=== PATIENT | male | born 1985 | race Caucasian/White ===

== ENCOUNTER 2017-11-17 15:13 | Emergency (ER) | payer OTHER ==
[2017-11-17 15:24] VITALS: BP 159/99
[2017-11-17] MEDS ORDERED: Ondansetron 4 MG/2 ML SDV IVPUSH ONE (15:33)
[2017-11-17] MEDS ORDERED: Sodium Chloride 0.9% 10 ML Syringe FLUSH PRN (15:33)
[2017-11-17] MEDS ORDERED: HYDROmorphone 1 MG/ML Syringe IVPUSH ONE (15:34)
[2017-11-17] MEDS ORDERED: Ketorolac 30 MG/ML SDV IVPUSH ONE (15:34)
[2017-11-17] MEDS ORDERED: Sodium Chloride 0.9% 1,000 ML IV SCH (15:45)
--- NOTE | 2017-11-17 17:16 | EDM.PDOC ---
ED HPI GENERAL MEDICAL PROBLEM - General Chief Complaint: Abdominal Pain Stated Complaint: ABDOMINAL PAIN Time Seen by Provider: 11/17/17 15:24 Source of Information: Reports: Patient History Limitations: Reports: No Limitations - History of Present Illness INITIAL COMMENTS - FREE TEXT/NARRATIVE: The patient presents with left sided flank pain. This started on Tuesday. He has nausea and vomiting. He has no dysuria or hematuria. He has a history of kidney stones and he feels this about the same pain. He had to get lithotripsy before. He has no fever, chills, cough, chest pain or shortness of breath. He went to the [facility] and they sent him here for an assessment. Onset: Gradual Duration: Day(s): (5) Location: Reports: Back (Left flank) Quality: Reports: Sharp Severity: Severe Improves with: Reports: None Worsens with: Reports: None Associated Symptoms: Reports: Nausea/Vomiting. Denies: Chest Pain, Cough, Fever /Chills, Shortness of Breath Left Flank Pain Score (Numeric/FACES): 8 - Related Data Allergies Allergy/AdvReac Type Severity Reaction Status Date / Time No Known Allergies Allergy Verified 04/26/16 10:04 Home Meds: Home Meds Acetaminophen/Butalbital/Caff [Fioricet 325-50-40 MG] 1 tab PO Q6H PRN 04/26/16 [History] DULoxetine HCl [Cymbalta] 60 mg PO DAILY 04/26/16 [History] Fluticasone Propionate [Allergy Relief] 15.8 ml NS DAILY 04/26/16 [History] Meloxicam 15 mg PO DAILY 04/26/16 [History] Multivit-Min/Iron Fum/Folic AC [Pblrx-Jdhdhgy-Hlyvxecj Tablet] 1 tab PO DAILY [History] Omeprazole 20 mg PO DAILY 04/26/16 [History] Ondansetron [Zofran] 8 mg PO Q6H PRN #6 tablet 04/26/16 [Rx] SUMAtriptan [Imitrex] 50 mg PO ASDIRECTED PRN 04/26/16 [History] Topiramate 25 mg PO BID 04/26/16 [History] Trimamcinolone Acetonide. TOP BEDTIME 04/26/16 [History] Verapamil HCl [Verapamil ER] 120 mg PO DAILY 04/26/16 [History] Tamsulosin HCl [Flomax] 0.4 mg PO DAILY #7 cap.er.24h 11/17/17 [Rx] oxyCODONE HCl/Acetaminophen [Percocet 5-325 mg Tablet] 1 - 2 each PO Q6HR PRN # 20 tablet 11/17/17 [Rx] Past Medical History HEENT History: Reports: Impaired Vision Genitourinary History: Reports: Renal Calculus Musculoskeletal History: Reports: Back Pain, Chronic, Neck Pain, Chronic Neurological History: Reports: Migraines Psychiatric History: Reports: Depression Social & Family History - Family History Family Medical History: Noncontributory - Tobacco Use Smoking Status *Q: Never Smoker Second Hand Smoke Exposure: No - Caffeine Use Caffeine Use: Reports: Coffee, Energy Drinks, Soda, Tea - Recreational Drug Use Recreational Drug Use: No ED ROS GENERAL - Review of Systems Review Of Systems: See Below Constitutional: Reports: No Symptoms HEENT: Reports: No Symptoms Respiratory: Reports: No Symptoms Cardiovascular: Reports: No Symptoms Endocrine: Reports: No Symptoms GI/Abdominal: Reports: Nausea, Vomiting. Denies: Abdominal Pain : Reports: Flank Pain (Left). Denies: Dysuria, Hematuria ED EXAM, RENAL/ - Physical Exam Exam: See Below Exam Limited By: No Limitations General Appearance: Alert, No Apparent Distress Ears: Normal External Exam Nose: Normal Inspection Head: Atraumatic, Normocephalic Neck: Normal Inspection Respiratory/Chest: No Respiratory Distress, Lungs Clear, Normal Breath Sounds Cardiovascular: Regular Rate, Rhythm, No Edema, No Murmur GI/Abdominal: Soft, Non-Tender, No Organomegaly, No Mass Back Exam: CVA Tenderness (L) (Mild) Course - Vital Signs Last Recorded V/S: Last Vital Signs Temp 98.6 F 11/17/17 15:20 Pulse 76 11/17/17 15:20 Resp 18 11/17/17 15:20 BP 159/99 H 11/17/17 15:20 Pulse Ox 100 11/17/17 15:20 - Orders/Labs/Meds Orders: Active Orders 24 hr Category Date Time Status Peripheral IV Care [RC] . DIRECTED Care 11/17/17 15:33 Active Abdomen Pelvis wo Cont [CT] Stat Exams 11/17/17 15:33 Taken UA W/MICROSCOPIC [URIN] Stat Lab 11/17/17 15:33 Uncollected Sodium Chloride 0.9% [Normal Saline] 1,000 ml Med 11/17/17 15:45 Active IV ASDIRECTED Sodium Chloride 0.9% [Saline Flush] Med 11/17/17 15:33 Active 10 ml FLUSH ASDIRECTED PRN ED Antiemetic Medication Reflex [OM.PC] Stat Oth 11/17/17 15:33 Ordered Peripheral IV Insertion Adult [OM.PC] Stat Ot 11/17/17 15:33 Ordered Medication Orders Sodium Chloride (Normal Saline) 1,000 mls @ 125 mls/hr IV ASDIRECTED WILMAR Last Admin: 11/17/17 16:41 Dose: 125 mls/hr Sodium Chloride (Saline Flush) 10 ml FLUSH ASDIRECTED PRN PRN Reason: Keep Vein Open Last Admin: 11/17/17 16:48 Dose: 10 ml Labs: Laboratory Tests 11/17/17 11/17/17 Range/Units 16:00 16:00 WBC 8.68 (4.23-9.07) K/mm3 RBC 4.24 L (4.63-6.08) M/mm3 Hgb 12.9 L (13.7-17.5) gm/L Hct 38.7 L (40.1-51.0) % MCV 91.3 (79.0-92.2) fl MCH 30.4 (25.7-32.2) pg MCHC 33.3 (32.2-35.5) g/dl RDW Std Deviation 40.9 (35.1-43.9) fL Plt Count 223 (163-337) K/mm3 MPV 10.1 (9.4-12.3) fl Neut % (Auto) 73.9 H (34.0-67.9) % Lymph % (Auto) 13.7 L (21.8-53.1) % [place] % (Auto) 9.2 (5.3-12.2) % Eos % (Auto) 2.9 (0.8-7.0) Baso % (Auto) 0.2 (0.1-1.2) % Neut # (Auto) 6.41 H (1.78-5.38) K/mm3 Lymph # (Auto) 1.19 L (1.32-3.57) K/mm3 [place] # (Auto) 0.80 (0.30-0.82) K/mm3 Eos # (Auto) 0.25 (0.04-0.54) K/mm3 Baso # (Auto) 0.02 (0.01-0.08) K/mm3 Sodium 139 (136-145) mEq/L Potassium 3.8 (3.5-5.1) mEq/L Chloride 103 (98-107) mEq/L Carbon Dioxide 25 (21-32) mEq/L Anion Gap 14.8 (5-15) BUN 14 (7-18) mg/dL Creatinine 1.6 H (0.7-1.3) mg/dL Est Cr Clr Drug Dosing 72.08 mL/min Estimated GFR (MDRD) 50 (>60) mL/min BUN/Creatinine Ratio 8.8 L (14-18) Glucose 94 (74-106) mg/dL Calcium 8.9 (8.5-10.1) mg/dL Total Bilirubin 0.4 (0.2-1.0) mg/dL AST 13 L (15-37) U/L ALT 28 (16-63) U/L Alkaline Phosphatase 97 (46-116) U/L Total Protein 7.6 (6.4-8.2) g/dl Albumin 3.4 (3.4-5.0) g/dl Globulin 4.2 gm/dL Albumin/Globulin Ratio 0.8 L (1-2) Lipase 110 (73-393) U/L Meds: Medications Generic Name Dose Route Start Last Admin Trade Name Freq PRN Reason Stop Dose Admin Sodium Chloride 1,000 mls @ 125 mls/hr 11/17/17 15:45 11/17/17 16:41 Normal Saline IV 125 mls/hr ASDIRECTED WILMAR Administration Sodium Chloride 10 ml 11/17/17 15:33 11/17/17 16:48 Saline Flush FLUSH 10 ml ASDIRECTED PRN Administration Keep Vein Open Discontinued Medications Generic Name Dose Route Start Last Admin Trade Name Freq PRN Reason Stop Dose Admin Hydromorphone HCl 1 mg 11/17/17 15:34 11/17/17 16:41 Dilaudid IVPUSH 11/17/17 15:35 1 mg ONETIME ONE Administration Ketorolac Tromethamine 30 mg 11/17/17 15:34 11/17/17 16:47 Toradol IVPUSH 11/17/17 15:35 30 mg ONETIME ONE Administration Ondansetron HCl 4 mg 11/17/17 15:33 11/17/17 16:45 Zofran IVPUSH 11/17/17 15:34 4 mg ONETIME ONE Administration - Re-Assessments/Exams Free Text/Narrative Re-Assessment/Exam: 11/17/17 17:15 I ordered an IV NS at 125mL/hr, zofran 4mg IV, toradol 30mg IV, dilaudid 1mg IV , labs, UA and a CT of his abdomen and pelvis. His CBC looks good. His creatinine is elevated at 1.6 but that what it was when he was in here last. His lipase was negative. His CT shows a 6 x 10mm left ureteropelvic junction calculus, left hydronephrosis. I called [facility] in [place] and talked with Dr Perez the urologist rn oncology clinical and he wanted to see the patient tomorrow. The patient is going down tomorrow for another appointment. Departure - Departure Time of Disposition: 17:20 Disposition: Home, Self-Care 01 Condition: Good Clinical Impression: Ureteral calculus, left, Kidney stone on left side, Ureteral colic - Discharge Information Prescriptions: oxyCODONE HCl/Acetaminophen [Percocet 5-325 mg Tablet] 1 - 2 each PO Q6HR PRN # 20 tablet PRN Reason: Pain Tamsulosin HCl [Flomax] 0.4 mg PO DAILY #7 cap.er.24h Referrals: Sherrie Jama DO [Primary Care Provider] - Additional Instructions: Follow up with Dr Perez tomorrow at [facility] in [place] at 10am [place] time. Take the percocet as needed for pain. Take the flomax daily. Please return if you are worse. - My Orders Last 24 Hours: My Active Orders 11/17/17 15:33 Peripheral IV Care [RC] . DIRECTED Abdomen Pelvis wo Cont [CT] Stat UA W/MICROSCOPIC [URIN] Stat Sodium Chloride 0.9% [Saline Flush] 10 ml FLUSH ASDIRECTED PRN ED Antiemetic Medication Reflex [OM.PC] Stat Peripheral IV Insertion Adult [OM.PC] Stat 11/17/17 15:45 Sodium Chloride 0.9% [Normal Saline] 1,000 ml IV ASDIRECTED - Assessment/Plan Last 24 Hours: My Active Orders 11/17/17 15:33 Peripheral IV Care [RC] . DIRECTED Abdomen Pelvis wo Cont [CT] Stat UA W/MICROSCOPIC [URIN] Stat Sodium Chloride 0.9% [Saline Flush] 10 ml FLUSH ASDIRECTED PRN ED Antiemetic Medication Reflex [OM.PC] Stat Peripheral IV Insertion Adult [OM.PC] Stat 11/17/17 15:45 Sodium Chloride 0.9% [Normal Saline] 1,000 ml IV ASDIRECTED
--- NOTE | 2017-11-18 11:02 | CT ---
CT abdomen and pelvis Technique: Multiple axial sections were obtained from inferiorly from above the dome of the diaphragm inferiorly through the pubic symphysis. Intravenous and oral contrast was not utilized. Study has been performed as a ureteral stone protocol. Findings: Left-sided hydronephrosis is seen due to an obstructing stone at the UPJ measuring approximately 9.5 mm in greatest dimension. No other abnormal calcifications are seen along the course of the ureters. Single small nonobstructing calculus seen within the left kidney. No abnormal calcifications seen within the right kidney. Visualized lung bases show nothing acute. Noncontrast appearance of the liver and spleen are within normal limits. Adrenal glands show no nodule. Pancreas is within normal limits. Gallbladder contains no calcified gallstones. Adrenal glands show no nodule. Small hiatal hernia is seen. Aorta shows no aneurysmal dilatation. No retroperitoneal adenopathy or mesenteric abnormalities are seen. No pelvic mass or adenopathy is seen. Appendix is seen which is normal. Bone window settings were reviewed which appear within normal limits for the patient's age. Impression: 1. Left-sided hydronephrosis caused by 9.5 mm stone within the left UPJ. Small nonobstructing calculus seen within the left kidney. 2. No additional abnormality is seen on noncontrast CT study of the abdomen and pelvis performed as a ureteral stone protocol. Diagnostic code #3 I agree with preliminary report issued by [facility] ([facility] report finalized on 11/17/17, 5:07 PM Central Time)
== END 2017-11-17 17:50 | disposition home or self-care (01) ==
LOC: JD.ED 15:13
DX: N13.2 Hydronephrosis with renal and ureteral calculous obstruction (principal); F32.9 Major depressive disorder, single episode, unspecified; Z79.899 Other long term (current) drug therapy
CPT/HCPCS: 36415; 74176; 74176-26; 80053; 83690; 85025; 96361; 96374; 96375; 99284-25; J1170; J1885; J2405; J7040; J7050

== ENCOUNTER 2019-03-16 16:31 | Emergency (ER) | payer OTHER ==
[2019-03-16 16:44] VITALS: BP 154/96
[2019-03-16] MEDS ORDERED: Ketorolac 30 MG/ML SDV IVPUSH ONE (16:59)
[2019-03-16] MEDS ORDERED: Sodium Chloride 0.9% 1,000 ML IV ONE (16:59)
[2019-03-16] MEDS ORDERED: Sodium Chloride 0.9% 10 ML Syringe FLUSH PRN (16:59)
--- NOTE | 2019-03-16 17:10 | EDM.PDOC ---
ED HPI GENERAL MEDICAL PROBLEM - General Chief Complaint: Flank Pain Stated Complaint: BACK PAIN POSSIBLE KIDNEY STONE Time Seen by Provider: 03/16/19 16:48 Source of Information: Reports: Patient, Old Records History Limitations: Reports: No Limitations - History of Present Illness INITIAL COMMENTS - FREE TEXT/NARRATIVE: 33-year-old male presents for evaluation and treatment of left flank pain. Patient states the pain started about 2-3 days ago. He reports that he had gross hematuria. He has a history of kidney stones and says that this feels similar. He has also noticed some diarrhea and some blood in stool. No fevers, chills, nausea, vomiting or abdominal pain. Patient was seen at the [facility] clinic, had a UA done. Had a large amount of blood present. Sent to us for further management and care. UA was negative for nitrites and leukocytes. Review the patient's records show that he was seen in November, in the ER. At that time his fund of a large stone, 9.5 mm, to the left ureter. Several smaller nonobstructing stones are seen in the left kidney. Patient did have to go to [facility] to have the stone removed. 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: [place] Left Flank Pain Score (Numeric/FACES): 6 - Related Data Allergies Allergy/AdvReac Type Severity Reaction Status Date / Time No Known Allergies Allergy Verified 04/26/16 10:04 Home Meds: Home Meds Acetaminophen 325 mg PO Q6H PRN 03/16/19 [History] Benazepril HCl [Lotensin] 20 mg PO DAILY 03/16/19 [History] Escitalopram Oxalate 10 mg PO DAILY 03/16/19 [History] Loratadine 10 mg PO DAILY 03/16/19 [History] Mirtazapine 45 mg PO BEDTIME 03/16/19 [History] Naproxen 500 mg PO BID 03/16/19 [History] Propranolol HCl 20 mg PO BID 03/16/19 [History] Terazosin HCl [Terazosin] 10 mg PO BEDTIME 03/16/19 [History] traZODone HCl [Trazodone HCl] 50 mg PO BEDTIME 03/16/19 [History] Past Medical History HEENT History: Reports: Impaired Vision Genitourinary History: Reports: Renal Calculus Musculoskeletal History: Reports: Back Pain, Chronic, Neck Pain, Chronic Neurological History: Reports: Migraines Psychiatric History: Reports: Depression Social & Family History - Family History Family Medical History: Noncontributory - Caffeine Use Caffeine Use: Reports: Coffee, Energy Drinks, Soda, Tea ED ROS GENERAL - Review of Systems Review Of Systems: See Below Constitutional: Denies: Fever, Chills GI/Abdominal: Reports: Diarrhea, Hematochezia. Denies: Abdominal Pain, Melena, Nausea, Vomiting : Reports: Flank Pain (left), Hematuria ED EXAM, RENAL/ - Physical Exam Exam: See Below Exam Limited By: No Limitations General Appearance: Alert, WD/WN, No Apparent Distress Throat/Mouth: Normal Inspection, Normal Voice, No Airway Compromise Respiratory/Chest: No Respiratory Distress, Lungs Clear, Normal Breath Sounds Cardiovascular: Normal Peripheral Pulses, Regular Rate, Rhythm, No Murmur GI/Abdominal: Normal Bowel Sounds, Soft, Non-Tender Back Exam: Normal Inspection, CVA Tenderness (L) Extremities: Normal Inspection Neurological: Alert, Oriented, Normal Cognition Psychiatric: Flat Affect Skin Exam: Warm, Dry, Normal Color Course - Vital Signs Last Recorded V/S: Last Vital Signs Temp 98 F 03/16/19 16:41 Pulse 87 03/16/19 16:41 Resp 18 03/16/19 16:41 BP 154/96 H 03/16/19 16:41 Pulse Ox 98 03/16/19 16:41 - Orders/Labs/Meds Labs: Laboratory Tests 03/16/19 03/16/19 Range/Units 17:35 17:35 WBC 5.96 (4.23-9.07) K/mm3 RBC 4.29 L (4.63-6.08) M/mm3 Hgb 12.9 L (13.7-17.5) gm/L Hct 38.8 L (40.1-51.0) % MCV 90.4 (79.0-92.2) fl MCH 30.1 (25.7-32.2) pg MCHC 33.2 (32.2-35.5) g/dl RDW Std Deviation 44.0 H (35.1-43.9) fL Plt Count 307 D (163-337) K/mm3 MPV 9.8 (9.4-12.3) fl Neut % (Auto) 50.5 (34.0-67.9) % Lymph % (Auto) 35.4 (21.8-53.1) % [place] % (Auto) 8.1 (5.3-12.2) % Eos % (Auto) 5.5 (0.8-7.0) Baso % (Auto) 0.3 (0.1-1.2) % Neut # (Auto) 3.01 (1.78-5.38) K/mm3 Lymph # (Auto) 2.11 (1.32-3.57) K/mm3 [place] # (Auto) 0.48 (0.30-0.82) K/mm3 Eos # (Auto) 0.33 (0.04-0.54) K/mm3 Baso # (Auto) 0.02 (0.01-0.08) K/mm3 Sodium 141 (136-145) mEq/L Potassium 3.5 (3.5-5.1) mEq/L Chloride 104 (98-107) mEq/L Carbon Dioxide 24 (21-32) mEq/L Anion Gap 16.5 H (5-15) BUN 13 (7-18) mg/dL Creatinine 1.2 (0.7-1.3) mg/dL Est Cr Clr Drug Dosing 95.20 mL/min Estimated GFR (MDRD) > 60 (>60) mL/min BUN/Creatinine Ratio 10.8 L (14-18) Glucose 110 H (74-106) mg/dL Calcium 9.0 (8.5-10.1) mg/dL Total Bilirubin 0.2 (0.2-1.0) mg/dL AST 10 L (15-37) U/L ALT 17 (16-63) U/L Alkaline Phosphatase 96 (46-116) U/L C-Reactive Protein 2.6 H* (<1.0) mg/dL Total Protein 7.1 (6.4-8.2) g/dl Albumin 3.6 (3.4-5.0) g/dl Globulin 3.5 gm/dL Albumin/Globulin Ratio 1.0 (1-2) Meds: Medications Discontinued Medications Generic Name Dose Route Start Last Admin Trade Name Freq PRN Reason Stop Dose Admin Sodium Chloride 1,000 mls @ 999 mls/hr 03/16/19 16:59 Normal Saline IV 03/16/19 17:59 ONETIME ONE Ketorolac Tromethamine 30 mg 03/16/19 16:59 03/16/19 17:40 Toradol IVPUSH 03/16/19 17:00 Not Given ONETIME ONE Ketorolac Tromethamine 60 mg 03/16/19 17:37 03/16/19 17:40 Toradol IM 03/16/19 17:38 60 mg ONETIME ONE Administration Sodium Chloride 10 ml 03/16/19 16:59 Saline Flush FLUSH ASDIRECTED PRN Keep Vein Open - Radiology Interpretation Free Text/Narrative:: CT abdomen and pelvis Technique: Multiple axial sections were obtained from above the dome of the diaphragm inferiorly through the pubic symphysis. Intravenous contrast and oral contrast not utilized. Study has been performed as a ureteral stone protocol. Comparison: Prior renal stone protocol dated 11/17/17. Findings: Nonobstructing stone is noted within the left kidney measuring 8 mm. No other abnormal calcifications are seen within the kidneys. No ureteral dilatation is seen. No ureteral calcifications are identified. Small portion of the visualized lung bases appear clear. Noncontrast appearance of the liver and spleen appear within normal limits. Adrenal glands show no nodule. Pancreas appears within normal limits. Aorta shows no aneurysm. No retroperitoneal adenopathy or mesenteric abnormalities are seen. Very small fat-containing umbilical hernia is incidentally noted. Appendix is seen which is normal in size. No pelvic mass or adenopathy is seen. No free fluid or inflammatory change is seen. No bowel dilatation is seen. No definite areas of bowel wall thickening are seen. Bone window settings were reviewed which appear within normal limits for the patient's age. Impression: 1. Nonobstructing calculus within the left kidney measuring 8 mm. No ureteral dilatation or ureteral stone is seen. 2. Other portions of the noncontrast CT study of the abdomen and pelvis appear within normal limits. Nothing acute is appreciated. - Re-Assessments/Exams Free Text/Narrative Re-Assessment/Exam: 03/16/19 19:01 Reviewed the labs and imaging with te patient. We were unable to establish an IV, therefor IM tordol ordered instead. Patient reported he had plans to go to work after leaving the ER. [facility] in his [facility] and the flank pain. Recommend follow-up with urology on a non emergent basis for the stone in the left kidney. Will discharge home at this time. Discharge instructions as documented. Departure - Departure Time of Disposition: 19:02 Disposition: Home, Self-Care 01 Condition: Fair Clinical Impression: Flank pain - Discharge Information *PRESCRIPTION DRUG MONITORING PROGRAM REVIEWED*: No *COPY OF PRESCRIPTION DRUG MONITORING REPORT IN PATIENT DYAN: No Instructions: Flank Pain, Adult, [id number] Referrals: Raya Espinosa MD [Primary Care Provider] - Forms: ED Department Discharge Additional Instructions: Recommend you drink plenty of fluids. Or the counter Tylenol or Motrin as needed for pain relief. [facility] of your [facility]. Recommend follow up with urology as you do have an 8 millimeter stone that is nonobstructing in the left kidney. This stone is not causing obstruction or ureteral dilation at this time. Please return to the ER if your symptoms change or worsen.
[2019-03-16] MEDS ORDERED: Ketorolac 60 MG/2 ML SDV IM ONE (17:37)
--- NOTE | 2019-03-16 18:26 | CT ---
CT abdomen and pelvis Technique: Multiple axial sections were obtained from above the dome of the diaphragm inferiorly through the pubic symphysis. Intravenous contrast and oral contrast not utilized. Study has been performed as a ureteral stone protocol. Comparison: Prior renal stone protocol dated 11/17/17. Findings: Nonobstructing stone is noted within the left kidney measuring 8 mm. No other abnormal calcifications are seen within the kidneys. No ureteral dilatation is seen. No ureteral calcifications are identified. Small portion of the visualized lung bases appear clear. Noncontrast appearance of the liver and spleen appear within normal limits. Adrenal glands show no nodule. Pancreas appears within normal limits. Aorta shows no aneurysm. No retroperitoneal adenopathy or mesenteric abnormalities are seen. Very small fat-containing umbilical hernia is incidentally noted. Appendix is seen which is normal in size. No pelvic mass or adenopathy is seen. No free fluid or inflammatory change is seen. No bowel dilatation is seen. No definite areas of bowel wall thickening are seen. Bone window settings were reviewed which appear within normal limits for the patient's age. Impression: 1. Nonobstructing calculus within the left kidney measuring 8 mm. No ureteral dilatation or ureteral stone is seen. 2. Other portions of the noncontrast CT study of the abdomen and pelvis appear within normal limits. Nothing acute is appreciated. Diagnostic code #2
== END 2019-03-16 19:10 | disposition home or self-care (01) ==
LOC: JD.ED 16:31
DX: R10.9 Unspecified abdominal pain (principal); F32.9 Major depressive disorder, single episode, unspecified; Z79.899 Other long term (current) drug therapy
CPT/HCPCS: 36415; 74176; 80053; 85025; 86140; 96372; 99284; J1885

== ENCOUNTER 2022-06-04 08:04 | Observation (INO) | payer OTHER ==
[2022-06-04] MEDS ORDERED: Metoclopramide 10 MG/2 ML SDV IVPUSH ONE (08:30)
[2022-06-04] MEDS ORDERED: Dextrose 5%-Lactated Ringers 1,000 ML IV SCH (08:30)
[2022-06-04] MEDS ORDERED: Ketorolac 30 MG/ML SDV IVPUSH SCH (08:30)
[2022-06-04] MEDS ORDERED: diphenhydrAMINE 50 MG/ML SDV IVPUSH ONE (08:58)
[2022-06-04] MEDS ORDERED: Pantoprazole 40 MG Vial IVPUSH ONE (09:36)
[2022-06-04] MEDS: Sodium Chloride 0.9% 1,000 ML IV SCH ×2 (09:55→16:01)
[2022-06-04] MEDS ORDERED: Magnesium Sulfate/Water 2 GM in Premix Bag 1 BAG IV ONE (12:00)
[2022-06-04] MEDS: Dextrose 5%-Lactated Ringers 1,000 ML IV SCH (17:13)
[2022-06-04] MEDS: Acetaminophen 325 MG Tab PO PRN (18:12)
[2022-06-04] MEDS: Mirtazapine 15 MG Tab PO SCH (21:07)
[2022-06-04] MEDS: Pantoprazole 40 MG Vial IV SCH (21:07)
[2022-06-05] MEDS: Dextrose 5%-Lactated Ringers 1,000 ML IV SCH ×2 (05:38→20:17)
[2022-06-05] MEDS: Loratadine 10 MG Tab PO SCH (08:18)
[2022-06-05] MEDS: Citalopram 20 MG Tab PO SCH (08:18)
[2022-06-05] MEDS: Acetaminophen 325 MG Tab PO PRN ×3 (08:18→20:10)
[2022-06-05] MEDS: Pantoprazole 40 MG Vial IV SCH ×2 (08:18→20:10)
[2022-06-05] MEDS: Levofloxacin 500 MG Tab PO SCH (10:18)
[2022-06-05] MEDS ORDERED: Magnesium Sulfate/Water 2 GM/50 ML BAG IV ONE (12:14)
[2022-06-05] MEDS: Potassium Chloride 10 MEQ in Premix Bag 1 BAG IV SCH ×2 (12:39→13:50)
[2022-06-05] MEDS: Mirtazapine 15 MG Tab PO SCH (20:10)
[2022-06-06] MEDS: Acetaminophen 325 MG Tab PO PRN ×4 (05:37→20:41)
[2022-06-06] MEDS: Pantoprazole 40 MG Vial IV SCH ×2 (09:24→20:41)
[2022-06-06] MEDS: Citalopram 20 MG Tab PO SCH (09:29)
[2022-06-06] MEDS: Levofloxacin 500 MG Tab PO SCH (09:29)
[2022-06-06] MEDS: Loratadine 10 MG Tab PO SCH (09:29)
[2022-06-06] MEDS ORDERED: traMADol 50 MG Tab PO ONE ×2 (10:03→16:06)
[2022-06-06] MEDS: Mirtazapine 15 MG Tab PO SCH (20:42)
[2022-06-07] MEDS: Acetaminophen 325 MG Tab PO PRN (09:44)
[2022-06-07] MEDS: Pantoprazole 40 MG Vial IV SCH ×2 (09:45→09:59)
[2022-06-07] MEDS: Citalopram 20 MG Tab PO SCH (09:45)
[2022-06-07] MEDS: Levofloxacin 500 MG Tab PO SCH (09:45)
[2022-06-07] MEDS: Loratadine 10 MG Tab PO SCH (09:45)
[2022-06-07] MEDS ORDERED: Pantoprazole 40 MG Tab.CR PO SCH (10:00)
[2022-06-07] MEDS ORDERED: Acetaminophen/Butalbital/Caffeine 325-50-40 MG Tab PO ONE (10:30)
[2022-06-07 11:44] VITALS: BP 133/82; PULSE 105
== END 2022-06-07 12:00 | disposition home or self-care (01) ==
LOC: JD.ED 08:04 → JD.MS 10:28
PROVIDERS: ADMIT Internal Medicine; ATTEND Internal Medicine
DX: K52.9 Noninfective gastroenteritis and colitis, unspecified (principal); F32.89 Other specified depressive episodes; G89.29 Other chronic pain; M54.2 Cervicalgia; M54.9 Dorsalgia, unspecified; K92.1 Melena; E83.42 Hypomagnesemia; D64.9 Anemia, unspecified; A03.9 Shigellosis, unspecified; E87.6 Hypokalemia; G43.909 Migraine, unspecified, not intractable, without status migrainosus; Z86.69 Personal history of other diseases of the nervous system and sense organs
CPT/HCPCS: 36415; 80048; 80053; 81001; 82009; 82272; 82947; 83605; 83630; 83735; 85014; 85018; 85025; 85610; 85730; 86140; 86850; 86900; 86901; 87045; 87046; 87338; 87449; 87493; 87899; 96361; 96365; 96366; 96367; 96375; 96376; 99284; A9270; C9113; G0378; J1200; J1885; J2765; J3475; J3480; J7030; J7121; 96374; 99283; G0433

== ENCOUNTER 2022-06-11 15:52 | Emergency (ER) | payer OTHER ==
[2022-06-11] MEDS ORDERED: Sodium Chloride 0.9% 10 ML Syringe FLUSH PRN (16:21)
[2022-06-11] MEDS ORDERED: Sodium Chloride 0.9% 1,000 ML IV ONE (17:09)
[2022-06-11 18:31] VITALS: BP 123/78; PULSE 112
== END 2022-06-11 18:28 | disposition home or self-care (01) ==
LOC: JD.ED 15:52
DX: D58.2 Other hemoglobinopathies (principal)
CPT/HCPCS: 36415; 80053; 83735; 85025; 96360; 99284; J3490; J7030; 99282